=== PATIENT | female | born 1945 | race Two or more races ===

== ENCOUNTER → 2016-06-23 | Outpatient (CLI) | payer OTHER ==
[~2016-06-23] MED LIST: ETAN50IN SC; FOLI1TAB6 PO; IBUP800T24 OR; LEVO50TA7 OR; LEVO50TA7 PO; MECL-87 PO; METH2.5T3 BU; PRE5T GT; TERI600S SC; TRAM50TA2 PO; [UNRECOGNIZED DRUG - OTHER] IM
== END | disposition home or self-care (01) ==
LOC: LAB 08:54
PROVIDERS: ATTEND Internal Medicine
DX: E03.9 Hypothyroidism, unspecified (principal)
CPT/HCPCS: 36415; 83970; 84439; 84443; 85049

== ENCOUNTER → 2016-08-03 | Outpatient (CLI) | payer OTHER ==
[2016-08-03 15:48] LABS: Basophils # (auto) 0 uL; Basophils % (auto) 0.5 % (0.0-2.0); Eosinophils # (auto) 0.2 uL; Hematocrit 38.6 % (36.0-46.0); Hemoglobin 12.8 g/dL (12.2-16.2); Lymphocytes # (auto) 2.5 uL; Lymphocytes % (auto) 29.9 % (10.0-50.0); Mean Corpuscular Hemoglobin 27.1 pg (28.0-32.0); Mean Corpuscular Hgb Conc. 33.1 g/dL (32.0-36.0); Mean Corpuscular Volume 81.9 fL (80.0-100.0); Mean Platelet Volume 6.8 fL (7.4-10.4); Monocytes # (auto) 0.5 uL; Monocytes % (auto) 6.3 % (0.0-12.0); Neutrophils # (auto) 5.2 uL; Neutrophils % (auto) 61.3 % (37.0-80.0); Platelet Count (auto) 488 10^3/uL (140-450); White Blood Cell 8.4 10^3/uL (4.4-10.8)
[2016-08-03 15:55] LABS: Albumin 3.4 g/dL (3.4-5.0); BUN/Creatinine Ratio 22.7; Bilirubin, Total 0.3 mg/dL (0.2-1.0); Calcium 10.2 mg/dL (8.5-10.1); Potassium 4.5 mmol/L (3.5-5.1)
[2016-08-03 15:59] LABS: Vitamin B12 814 pg/mL (211-911)
[2016-08-03 17:08] LABS: Wright Stain Ready for Review
[2016-08-03 17:29] LABS: Temperature: 22.7 C (20.0-25.0)
== END | disposition home or self-care (01) ==
LOC: LAB 14:15
PROVIDERS: ATTEND Internal Medicine
DX: D47.3 Essential (hemorrhagic) thrombocythemia (principal)
CPT/HCPCS: 36415; 80053; 82607; 82746; 83615; 84443; 85025; 85652; 86038; 86703; 86704; 86706; 86708; 86803; 87340

== ENCOUNTER → 2016-08-17 | Outpatient (CLI) | payer OTHER | END | disposition home or self-care (01) | LOC: LAB 15:52 | PROVIDERS: ATTEND Internal Medicine | DX: D47.3 Essential (hemorrhagic) thrombocythemia (principal) ==

== ENCOUNTER 2016-08-22 10:43 | Emergency (ER) | payer OTHER ==
[~2016-08-22] VITALS: Ht 152.4 cm; Wt 47.7 kg
[2016-08-22 10:55] VITALS: BP 120/72
[2016-08-22 11:35] LABS: Basophils # (auto) 0 uL; Basophils % (auto) 0.5 % (0.0-2.0); DEFINITIVE VIEW TRANSMISSION; Eosinophils # (auto) 0.2 uL; Eosinophils % (auto) 2.1 % (0.0-7.0); Hemoglobin 12.1 g/dL (12.2-16.2); Lymphocytes # (auto) 1.8 uL; Lymphocytes % (auto) 20.4 % (10.0-50.0); Mean Corpuscular Hemoglobin 26.7 pg (28.0-32.0); Mean Corpuscular Hgb Conc. 32.7 g/dL (32.0-36.0); Mean Corpuscular Volume 81.7 fL (80.0-100.0); Monocytes # (auto) 0.5 uL; Monocytes % (auto) 6.2 % (0.0-12.0); Neutrophils # (auto) 6.1 uL; Neutrophils % (auto) 70.8 % (37.0-80.0); Platelet Count (auto) 508 10^3/uL (140-450); Red Cell Distribution Width 16.6 % (11.6-16.0); White Blood Cell 8.6 10^3/uL (4.4-10.8)
[2016-08-22 11:55] LABS: Albumin 3.4 g/dL (3.4-5.0); BUN/Creatinine Ratio 14.5; Bilirubin, Total 0.3 mg/dL (0.2-1.0); Calcium 9.6 mg/dL (8.5-10.1); Potassium 3.9 mmol/L (3.5-5.1); Total Protein 7.6 g/dL (6.4-8.2)
== END 2016-08-23 09:06 | disposition left against medical advice (07) ==
LOC: ER 10:43
DX: R19.7 Diarrhea, unspecified (principal); Z53.21 Procedure and treatment not carried out due to patient leaving prior to being seen by health care provider
CPT/HCPCS: 36415; 80053; 85025; 93005

== ENCOUNTER 2016-10-27 20:54 | Emergency (ER) | payer OTHER ==
[~2016-10-27] VITALS: Ht 160 cm; Wt 48.5 kg
[2016-10-27 22:06] LABS: Basophils # (auto) 0 uL; Eosinophils # (auto) 0.1 uL; Eosinophils % (auto) 0.6 % (0.0-7.0); Hemoglobin 12.5 g/dL (12.2-16.2); Lymphocytes # (auto) 1.6 uL; Lymphocytes % (auto) 12.4 % (10.0-50.0); Mean Corpuscular Hemoglobin 27.2 pg (28.0-32.0); Mean Corpuscular Hgb Conc. 32.8 g/dL (32.0-36.0); Mean Corpuscular Volume 82.9 fL (80.0-100.0); Mean Platelet Volume 6.8 fL (7.4-10.4); Monocytes # (auto) 0.4 uL; Monocytes % (auto) 2.9 % (0.0-12.0); Neutrophils # (auto) 10.8 uL; Neutrophils % (auto) 84.1 % (37.0-80.0); Platelet Count (auto) 521 10^3/uL (140-450); Red Cell Distribution Width 17.2 % (11.6-16.0); White Blood Cell 12.8 10^3/uL (4.4-10.8)
[2016-10-27 22:09] LABS: Albumin 3.7 g/dL (3.4-5.0); Alkaline Phosphatase 109 U/L (45-117); Anion Gap 10 (5-15); Aspartate Aminotransferase 16 U/L (15-37); BUN/Creatinine Ratio 28.6; Bilirubin, Total 0.6 mg/dL (0.2-1.0); Blood Urea Nitrogen 20 mg/dL (7-18); Carbon Dioxide 22 mmol/L (21-32); Chloride 108 mmol/L (98-107); GFR African American 106 mL/min; GFR Non-African American 87 mL/min; Glucose 149 mg/dL (74-106); Potassium 3.9 mmol/L (3.5-5.1); Sodium 140 mmol/L (136-145); Total Protein 8.2 g/dL (6.4-8.2)
[2016-10-27] MEDS ORDERED: HYDROmorphone HCL 2 MG/ML VL IV ONE (22:15)
[2016-10-27] MEDS ORDERED: ONDANSETRON HCL 4 MG/2 ML VIAL IV ONE (22:15)
[2016-10-28] MEDS ORDERED: LORazepam 2MG/ML-1ML VIAL ONE (00:16)
[2016-10-28] MEDS ORDERED: LORazepam 2MG/ML-1ML VIAL IV ONE (00:30)
[2016-10-28] MEDS ORDERED: HYDROmorphone HCL 2 MG/ML VL IV ONE (05:30)
[2016-10-28] MEDS ORDERED: ONDANSETRON HCL 4 MG/2 ML VIAL IV ONE (05:30)
[2016-10-28 06:04] VITALS: BP 115/74
== END 2016-10-28 06:05 | disposition home or self-care (01) ==
LOC: ER 20:54
DX: S42.002A Fracture of unspecified part of left clavicle, initial encounter for closed fracture (principal); S52.022A Displaced fracture of olecranon process without intraarticular extension of left ulna, initial encounter for closed fracture; M06.9 Rheumatoid arthritis, unspecified; R51 Headache; F02.80 Dementia in other diseases classified elsewhere, unspecified severity, without behavioral disturbance, psychotic disturbance, mood disturbance, and anxiety; G30.9 Alzheimer's disease, unspecified; Z86.73 Personal history of transient ischemic attack (TIA), and cerebral infarction without residual deficits; E07.9 Disorder of thyroid, unspecified; Z98.51 Tubal ligation status; Z79.899 Other long term (current) drug therapy; M19.90 Unspecified osteoarthritis, unspecified site; W18.39XA Other fall on same level, initial encounter; Y93.89 Activity, other specified; Y92.89 Other specified places as the place of occurrence of the external cause; Y99.8 Other external cause status
CPT/HCPCS: 29105; 36415; 70450; 71101; 72125; 73000; 73020; 73070; 80053; 82962; 84484; 85025; 93005; 96374; 96375; 96376; 99285; J1170; J2060; J2405

== ENCOUNTER 2016-11-05 06:09 | Day surgery (SDC) | payer OTHER ==
[2016-11-04 12:37] LABS: Basophils # (auto) 0 uL; Basophils % (auto) 0.3 % (0.0-2.0); Eosinophils # (auto) 0.1 uL; Eosinophils % (auto) 1.7 % (0.0-7.0); Hematocrit 33.9 % (36.0-46.0); Hemoglobin 11.2 g/dL (12.2-16.2); Lymphocytes # (auto) 1.6 uL; Lymphocytes % (auto) 20.1 % (10.0-50.0); Mean Corpuscular Hemoglobin 27.3 pg (28.0-32.0); Mean Corpuscular Hgb Conc. 32.9 g/dL (32.0-36.0); Mean Corpuscular Volume 82.8 fL (80.0-100.0); Mean Platelet Volume 6.3 fL (7.4-10.4); Monocytes # (auto) 0.6 uL; Monocytes % (auto) 7.7 % (0.0-12.0); Neutrophils # (auto) 5.7 uL; Neutrophils % (auto) 70.2 % (37.0-80.0); Platelet Count (auto) 541 10^3/uL (140-450); Red Cell Distribution Width 16.8 % (11.6-16.0); SUSPECT VIEW TRANSMISSION; White Blood Cell 8.1 10^3/uL (4.4-10.8)
[2016-11-04 12:45] LABS: INR 0.98 (0.9-1.15); Partial Thromboplastin Time 26.2 sec (22.64-33.71); Prothrombin Time 10.7 sec (9.37-12.3); Urine Bilirubin Negative (Negative); Urine Blood Negative /uL (Negative); Urine Color Yellow (Yellow); Urine Glucose Normal (Normal); Urine Ketone Negative (Negative); Urine Nitrite Negative (Negative); Urine RBC 1 /hpf (0 - 4); Urine Squamous Epithelial Cell FEW /hpf (<5); Urine pH 5.5 (5.0-8.0)
[2016-11-04 13:07] LABS: Albumin 3.2 g/dL (3.4-5.0); BUN/Creatinine Ratio 28.3; Bilirubin, Total 0.7 mg/dL (0.2-1.0); Calcium 9.6 mg/dL (8.5-10.1); Potassium 4.4 mmol/L (3.5-5.1); Total Protein 7.7 g/dL (6.4-8.2)
[~2016-11-05] VITALS: Ht 152.4 cm; Wt 49.4 kg
[~2016-11-05 06:09] MED LIST changes: +DONE10TA17 PO; -ETAN50IN SC; +IBU600T PO; -IBUP800T24 OR; -LEVO50TA7 OR; -MECL-87 PO; -METH2.5T3 BU; +METH2.5T3 OR; +OMEP20CA74 PO; -PRE5T GT; -TERI600S SC; -TRAM50TA2 PO; -[UNRECOGNIZED DRUG - OTHER] IM
[2016-11-05] MEDS ORDERED: LIDOCAINE 1% HCL (LOCAL ANESTH.) INJ 20ML MDV ONE (06:45)
[2016-11-05] MEDS ORDERED: LIDOCAINE W/ EPINEPHRINE 1 % INJ 30ML ONE (06:45)
[2016-11-05] MEDS ORDERED: BUPIVACAINE W/ EPINEPH 0.25% INJ 50ML MDV ONE (06:45)
[2016-11-05] MEDS ORDERED: BUPIVACAINE 0.25% INJ 50ML VIAL ONE (06:46)
[2016-11-05] MEDS ORDERED: ceFAZolin 1GM/50ML D5W 50 ML IV ONE (06:54)
[2016-11-05] MEDS ORDERED: MEPERIDINE HCL (50 MG/ML) 1 ML VIAL ONE (07:17)
[2016-11-05] MEDS ORDERED: fentaNYL CITRATE 100 MCG/2 ML VL ONE (07:17)
[2016-11-05] MEDS ORDERED: MIDAZOLAM HCL 1MG/1ML-2 ML VIAL ONE (07:17)
[2016-11-05] MEDS ORDERED: DEXAMETHASONE SOD PHOS 10MG/1ML VIAL INJ ONE (07:30)
[2016-11-05] MEDS ORDERED: PROPOFOL 10 MG/ML 20 ML IV ONE (07:35)
[2016-11-05] MEDS ORDERED: LIDOCAINE 1% HCL (LOCAL ANESTH.) INJ 20ML MDV IJ ONE (07:54)
[2016-11-05] MEDS ORDERED: KETOROLAC TROMETH 30 MG/ML 1ML VIAL ONE (08:09)
[2016-11-05] MEDS ORDERED: KETOROLAC TROMETH 30 MG/ML 1ML VIAL IV ONE (08:15)
[2016-11-05] MEDS ORDERED: LABETALOL HCL 5 MG/ML 4ML SYRINGE IV PRN (08:15)
[2016-11-05] MEDS ORDERED: ePHEDrine SULFATE 50 MG/ML AMP IV PRN (08:15)
[2016-11-05] MEDS ORDERED: hydrALAZINE HCL 20 MG/ML VL IV PRN (08:15)
[2016-11-05] MEDS ORDERED: ONDANSETRON HCL 4 MG/2 ML VIAL IV ONE (08:15)
[2016-11-05] MEDS ORDERED: MIDAZOLAM HCL 1MG/1ML-2 ML VIAL IV PRN (08:15)
[2016-11-05] MEDS ORDERED: HYDROmorphone HCL 2 MG/ML VL IV PRN (08:15)
[2016-11-05] MEDS ORDERED: MORPHINE SULF INJ 2 MG/ML SYRINGE 1ML IV PRN (08:15)
[2016-11-05] MEDS ORDERED: ONDANSETRON HCL 4 MG/2 ML VIAL IV PRN (08:15)
[2016-11-05 10:48] VITALS: BP 131/77
== END 2016-11-05 10:58 | disposition home or self-care (01) ==
LOC: SUR 06:09
PROVIDERS: ATTEND Orthopaedic Surgery
DX: S52.022B Displaced fracture of olecranon process without intraarticular extension of left ulna, initial encounter for open fracture type I or II (principal); M71.522 Other bursitis, not elsewhere classified, left elbow; X58.XXXA Exposure to other specified factors, initial encounter; Y93.9 Activity, unspecified; Y92.9 Unspecified place or not applicable; Y99.9 Unspecified external cause status; Z90.49 Acquired absence of other specified parts of digestive tract; Z90.710 Acquired absence of both cervix and uterus
CPT/HCPCS: 24105; 24685; 36415; 73070; 76000; 80053; 81001; 85025; 85610; 85730; J0690; J1100; J1170; J1885; J2175; J2250; J2704; J3010; J2001; J3490

== ENCOUNTER → 2016-12-30 | Outpatient (CLI) | payer OTHER ==
[2016-12-30 14:45] LABS: Basophils # (auto) 0.1 uL; CONDITION Y; Eosinophils # (auto) 0.2 uL; Hematocrit 35.1 % (36.0-46.0); Hemoglobin 11.6 g/dL (12.2-16.2); Lymphocytes # (auto) 2.1 uL; Lymphocytes % (auto) 23.8 % (10.0-50.0); Mean Corpuscular Volume 84.9 fL (80.0-100.0); Mean Platelet Volume 6.4 fL (7.4-10.4); Monocytes # (auto) 0.5 uL; Monocytes % (auto) 5.5 % (0.0-12.0); Neutrophils # (auto) 5.9 uL; Neutrophils % (auto) 67.7 % (37.0-80.0); Platelet Count (auto) 551 10^3/uL (140-450); Red Cell Distribution Width 16.9 % (11.6-16.0); White Blood Cell 8.8 10^3/uL (4.4-10.8)
[2016-12-30 15:16] LABS: Albumin 3.3 g/dL (3.4-5.0); BUN/Creatinine Ratio 21.2; Bilirubin, Total 0.4 mg/dL (0.2-1.0); Potassium 3.8 mmol/L (3.5-5.1); Total Protein 7.8 g/dL (6.4-8.2)
== END | disposition home or self-care (01) ==
LOC: LAB 14:18
DX: D64.9 Anemia, unspecified (principal); M06.9 Rheumatoid arthritis, unspecified; M25.50 Pain in unspecified joint; I10 Essential (primary) hypertension; Z79.899 Other long term (current) drug therapy
CPT/HCPCS: 36415; 80053; 85025; 85652; 86141

== ENCOUNTER → 2017-03-23 | Outpatient (CLI) | payer OTHER ==
[2017-03-23 10:32] LABS: Urine RBC None Seen /hpf (0 - 4)
[2017-03-23 11:08] LABS: Urine Bilirubin Negative (Negative); Urine Blood Negative /uL (Negative); Urine Color Yellow (Yellow); Urine Glucose Normal (Normal); Urine Ketone Negative (Negative); Urine Mucus FEW (None Seen); Urine Nitrite Negative (Negative); Urine Squamous Epithelial Cell FEW /hpf (<5); Urine Urobilinogen Normal (Negative); Urine pH 6.5 (5.0-8.0)
[2017-03-23 11:11] LABS: Vitamin B12 696 pg/mL (211-911)
[2017-03-23 11:13] LABS: Albumin 3.3 g/dL (3.4-5.0); Basophils # (auto) 0.1 uL; Basophils % (auto) 0.5 % (0.0-2.0); Bilirubin, Total 0.4 mg/dL (0.2-1.0); Eosinophils # (auto) 0.2 uL; Eosinophils % (auto) 1.7 % (0.0-7.0); Hematocrit 37.1 % (36.0-46.0); Hemoglobin 12.2 g/dL (12.2-16.2); Lymphocytes # (auto) 1.1 uL; Lymphocytes % (auto) 10.9 % (10.0-50.0); Mean Corpuscular Hemoglobin 27.8 pg (28.0-32.0); Mean Corpuscular Hgb Conc. 32.8 g/dL (32.0-36.0); Mean Corpuscular Volume 84.9 fL (80.0-100.0); Mean Platelet Volume 6.4 fL (6.9-10.8); Monocytes # (auto) 0.6 uL; Monocytes % (auto) 5.8 % (0.0-12.0); Neutrophils # (auto) 8.1 uL; Neutrophils % (auto) 81.1 % (37.0-80.0); Platelet Count (auto) 420 10^3/uL (140-450); Potassium 3.9 mmol/L (3.5-5.1); Red Cell Distribution Width 16.5 % (11.8-14.3)
[2017-03-23 11:30] LABS: Temperature: 23.5 C (20.0-25.0)
== END | disposition home or self-care (01) ==
LOC: LAB 09:42
PROVIDERS: ATTEND Internal Medicine
DX: E03.9 Hypothyroidism, unspecified (principal); F03.90 Unspecified dementia, unspecified severity, without behavioral disturbance, psychotic disturbance, mood disturbance, and anxiety
CPT/HCPCS: 36415; 80053; 80061; 81001; 82607; 82746; 84439; 84443; 85025; 85652

== ENCOUNTER 2018-01-23 20:20 | Emergency (ER) | payer OTHER ==
[~2018-01-23] VITALS: Ht 154.9 cm; Wt 61.7 kg
[2018-01-23] MEDS ORDERED: LORazepam 2MG/ML-1ML VIAL IV ONE (23:45)
[2018-01-24 01:39] VITALS: BP 140/86
== END 2018-01-24 02:10 | disposition short-term general hospital (02) ==
LOC: ER 20:20 → EDBD 20:20 → ER 01-24 02:10
DX: S06.2X9A Diffuse traumatic brain injury with loss of consciousness of unspecified duration, initial encounter (principal); M19.90 Unspecified osteoarthritis, unspecified site; E07.9 Disorder of thyroid, unspecified; Z86.73 Personal history of transient ischemic attack (TIA), and cerebral infarction without residual deficits; Z90.49 Acquired absence of other specified parts of digestive tract; Z79.899 Other long term (current) drug therapy; W01.0XXA Fall on same level from slipping, tripping and stumbling without subsequent striking against object, initial encounter; Y93.89 Activity, other specified; Y99.8 Other external cause status; Y92.89 Other specified places as the place of occurrence of the external cause
CPT/HCPCS: 70450; 96374; 99285; J2060